=== PATIENT | male | born 1995 | race Caucasian/White ===

== ENCOUNTER → 2017-04-28 | Outpatient (CLI) | payer BC ==
[~2017-04-28] MED LIST: GADAVIST IV PRN
--- NOTE | 2017-04-28 09:25 | DIAGNOSTIC IMAGING REPORT ---
BRAIN COMBO FOR IAC CLINICAL HISTORY: *W/ IACS* GAIT INSTABILITY S/P MONONUCLEOSIS mental status change. TECHNIQUE: Multiaxial MRI acquisition pre and post gadolinium enhancement COMPARISON STUDY: None FINDINGS: Diffusion images are negative for an acute ischemic event. Signal characteristics of the cerebellar as well as cerebral hemispheres are within normal limits. Sella and parasellar regions are unremarkable. The pituitary is unremarkable. Internal auditory canals are symmetric. No evidence for abnormal enhancement. IMPRESSION: Normal MRI of the brain and internal auditory canals. The above report was generated using voice recognition software. It may contain grammatical, syntax or spelling errors. Electronically signed by: Karlos Oliver M.D. 04/28/2017 9:24 AM Dictated Date/Time: 04/28/2017 9:21 AM
== END | disposition home or self-care (01) ==
LOC: C.MRI 08:13
PROVIDERS: ATTEND Otolaryngology
DX: H81.49 Vertigo of central origin, unspecified ear (principal); R26.81 Unsteadiness on feet